=== PATIENT | female | born 1930 | race Caucasian/White ===

== ENCOUNTER → 2018-04-08 | Emergency (ER) | payer OTHER ==
[~2018-04-08] VITALS: Ht 152.4 cm; Wt 44.0 kg
[~2018-04-08] MED LIST: DIOVAN40 MG; DIOVAN40 MG PO; PRINIVIL5 MG; SYNTHROID50 MCG; SYNTHROID75 MCG; ZANTAC 7575 MG; [UNRECOGNIZED DRUG - OTHER]
== END | disposition left against medical advice (07) ==
LOC: ER 11:05
DX: K29.60 Other gastritis without bleeding (principal)

== ENCOUNTER 2018-09-28 11:38 | Outpatient (CLI) | payer OTHER | END 2018-09-28 11:50 | disposition home or self-care (01) | LOC: NUCLEAR 11:38 | DX: I11.9 Hypertensive heart disease without heart failure (principal); I52 Other heart disorders in diseases classified elsewhere ==

== ENCOUNTER 2018-12-25 16:44 | Emergency (ER) | payer OTHER ==
[~2018-12-25] VITALS: Ht 147.3 cm; Wt 44.9 kg
[2018-12-26] MEDS ORDERED: ZYNCOF 20-400120 ML PO (02:50)
[2018-12-26] MEDS ORDERED: PEPCID40 MG PO (02:50)
[2018-12-26] MEDS ORDERED: ZOFRAN ODT4 MG PO (02:50)
== END 2018-12-26 02:42 | disposition home or self-care (01) ==
LOC: ER 16:44
DX: K52.9 Noninfective gastroenteritis and colitis, unspecified (principal); E86.0 Dehydration; K29.70 Gastritis, unspecified, without bleeding

== ENCOUNTER 2019-02-04 14:00 | Outpatient (CLI) | payer OTHER ==
[~2019-02-04 14:00] MED LIST changes: +PEPCID40 MG PO; +ZOFRAN ODT4 MG PO; +ZYNCOF 20-400120 ML PO
== END 2019-02-04 14:01 | disposition home or self-care (01) ==
LOC: SONOGRAMA 14:00
DX: E04.1 Nontoxic single thyroid nodule (principal)